=== PATIENT | male | born 1935 | race Caucasian/White ===

== ENCOUNTER 2017-10-02 08:39 | Day surgery (SDC) | payer MEDICARE ==
[2017-09-22 13:45] VITALS: BP 157/91
[~2017-10-02] VITALS: Ht 175.3 cm; Wt 58.6 kg
[~2017-10-02 08:39] MED LIST: ATOR10TA9 PO; CHOL10003 PO; FINA5TAB4 PO; TAMS0.4C2 PO
[2017-10-02] MEDS ORDERED: LACTATED RINGERS 1,000 ML IV SCH (09:19)
[2017-10-02] MEDS ORDERED: LIDOCAINE-MPF 1%, 2ML INFIL ONE (09:30)
[2017-10-02] MEDS ORDERED: BUPIVACAINE/PF 0.5% ONE (10:07)
[2017-10-02] MEDS ORDERED: PROPOFOL 10 MG/ML, 20ML ONE (10:16)
[2017-10-02] MEDS ORDERED: CIPROFLOXACIN/PMX 400MG/200ML 200 ML ONE (10:34)
[2017-10-02] MEDS ORDERED: BUPIVACAINE/PF 0.5% INFIL ONE (10:43)
[2017-10-02] MEDS ORDERED: ACETAMINOPHEN 650 MG/20.3 ML UDC ONE (11:20)
[2017-10-02] MEDS ORDERED: OXYcodone 5 MG/5 ML ORAL.SOL UDC ONE (11:20)
[2017-10-02] MEDS ORDERED: ONDANSETRON ODT 8 MG PO PRN (11:30)
[2017-10-02] MEDS ORDERED: OXYcodone 5 MG/5 ML ORAL.SOL UDC PO PRN (11:30)
[2017-10-02] MEDS ORDERED: ACETAMINOPHEN 325 MG TABLET PO PRN (11:30)
[2017-10-02] MEDS ORDERED: FENTANYL PF 100 MCG/2ML IV PRN (11:30)
[2017-10-02] MEDS ORDERED: HYDROcodone/APAP 7.5-325MG/15ML UDC PO PRN (11:30)
== END 2017-10-02 13:05 ==
LOC: OUT 08:39
PROVIDERS: ATTEND Urology
DX: N31.9 Neuromuscular dysfunction of bladder, unspecified (principal); R33.9 Retention of urine, unspecified; I10 Essential (primary) hypertension; N40.0 Benign prostatic hyperplasia without lower urinary tract symptoms; Z88.1 Allergy status to other antibiotic agents
CPT/HCPCS: 51040; J0744; J2704; J3490; J7120